=== PATIENT | female | born 1945 | race Caucasian/White ===

== ENCOUNTER 2016-12-06 09:45 | Emergency (ER) | payer OTHER ==
[2016-12-06 09:50] VITALS: BP 139/56; PULSE 59; RESP 16; TEMP 98.1; O2SAT 95
[2016-12-06] MEDS ORDERED: AZITHROMYCIN 250 MG TAB PO ONE (10:10)
--- NOTE | 2016-12-06 10:12 | EDPHY ---
H & P Stated Complaint: COUGH X1 WEEK Time Seen by Provider: 12/06/16 10:05 HPI/ROS: CHIEF COMPLAINT: Cough, bronchitis HISTORY OF PRESENT ILLNESS: The patient is a 71-year-old healthy female who comes to the emergency department requesting azithromycin for a cough and bronchitis. She states that she has had the symptoms for about 5 days. She has not had a fever. She complains of sinus congestion and a cough productive of yellow sputum. She does not have any history of cardiac or pulmonary disease. She denies sore throat. She spoke to her brother who is a retired physician and suggested she take a Z-Devon. REVIEW OF SYSTEMS: Constitutional: denies: chills, fever, recent illness, recent injury EENTM: See HPI Respiratory: See HPI Cardiac: denies: chest pain, irregular heart rate, lightheadedness, palpitations Gastrointestinal/Abdominal: denies: abdominal pain, diarrhea, nausea, vomiting, blood streaked stools Genitourinary: denies: dysuria, frequency, hematuria, pain Musculoskeletal: denies: joint pain, muscle pain Skin: denies: lesions, rash, jaundice, bruising Neurological: denies: headache, numbness, paresthesia, tingling, dizziness, weakness Hematologic/Lymphatic: denies: blood clots, easy bleeding, easy bruising Immunologic/allergic: denies: HIV/AIDS, transplant EXAM: GENERAL: Well-appearing, well-nourished and in no acute distress. HEAD: Atraumatic, normocephalic. EYES: Pupils equal round and reactive to light, extraocular movements intact, sclera anicteric, conjunctiva are normal. ENT: TMs normal, sinus congestion , oropharynx clear without exudates. Moist mucous membranes. NECK: Normal range of motion, supple without lymphadenopathy or JVD. LUNGS: Breath sounds clear to auscultation bilaterally and equal. No wheezes rales or rhonchi. HEART: Regular rate and rhythm without murmurs, rubs or gallops. ABDOMEN: Soft, nontender, normoactive bowel sounds. No guarding, no rebound. No masses appreciated. BACK: No CVA tenderness, no spinal tenderness, step-offs or deformities EXTREMITIES: Normal range of motion, no pitting or edema. No clubbing or cyanosis. NEUROLOGICAL: Cranial nerves II through XII grossly intact. Normal speech, normal gait. 5/5 strength, normal movement in all extremities, normal sensation PSYCH: Normal mood, normal affect. SKIN: Warm, dry, normal turgor, no visible rashes or lesions. Source: Patient Exam Limitations: No limitations - Personal History Current Tetanus/Diphtheria Vaccine: Unsure Current Tetanus Diphtheria and Acellular Pertussis (TDAP): Unsure - Medical/Surgical History Hx Asthma: No Hx Chronic Respiratory Disease: No Hx Diabetes: No Hx Cardiac Disease: No Hx Renal Disease: No Hx Cirrhosis: No Hx Alcoholism: No Hx HIV/AIDS: No Hx Splenectomy or Spleen Trauma: No Other PMH: PMH- HYPOTHYROID. PSH- TONSILECTOMY - Family History Significant Family History: Hypertension - Social History Smoking Status: Former smoker Alcohol Use: Sober Drug Use: None Constitutional: Initial Vital Signs Temperature (C) 36.7 C 12/06/16 09:47 Heart Rate 59 L 12/06/16 09:47 Respiratory Rate 16 12/06/16 09:47 Blood Pressure 139/56 H 12/06/16 09:47 O2 Sat (%) 95 12/06/16 09:47 O2 Delivery Mode Room Air Allergies/Adverse Reactions: No Known Allergies Allergy (Unverified 12/06/16 09:48) Home Medications: Medication Instructions Recorded AZITHROMYCIN [Z-PACK] 250 mg PO DAILY #4 tab 12/06/16 [place] Thyroid 60 MG (*) 12/06/16 Zolpidem Tartrate [Ambien 10 mg] 10 mg PO HS PRN #5 tablet 12/06/16 Medical Decision Making - Diagnostics Imaging: X-ray: chest x-ray was obtained. I viewed the images myself on the PACS system. My interpretation of the images is: Consistent with bronchitis. The radiologist interpretation is pending. ED Course/Re-evaluation: 10:30 a.m. the patient's x-rays consistent with bronchitis. She is requesting azithromycin. I will start her on a dose. She is also requesting a sleep aid but not codeine. She is requesting Ambien only for 1-2 days. I agreed to this. We discussed indications for returning as well as follow-up. Differential Diagnosis: Partial list of the Differential diagnosis considered include but were not limited to; bronchitis, pneumonia, upper respiratory tract infection, insomnia , and although unlikely based on the history and physical exam, I also considered strep throat, meningitis, sepsis. I discussed these differential diagnoses and the plan with the patient as well as the usual and expected course. The patient understands that the diagnosis is provisional and that in medicine we are not always correct and that further workup is often warranted. Usual and customary warnings were given. All of the patient's questions were answered. The patient was instructed to return to the emergency department should the symptoms at all worsen or return, otherwise to followup with the physician as we discussed. - Data Points Medications Given: Discontinued Medications Azithromycin (Zithromax) 500 mg PO EDNOW ONE PRN Reason: Protocol Stop: 12/06/16 10:11 Last Admin: 12/06/16 10:36 Dose: 500 mg Departure - Departure Disposition: Home, Routine, Self-Care Clinical Impression: Acute bronchitis Qualifiers: Bronchitis organism: unspecified organism Qualified Code(s): J20.9 - Acute bronchitis, unspecified Insomnia Qualifiers: Insomnia type: unspecified Qualified Code(s): G47.00 - Insomnia, unspecified Condition: Fair Instructions: Acute Bronchitis (ED), Insomnia (ED) Referrals: Christine Ballesteros MD [Primary Care Provider] - As per Instructions Prescriptions: AZITHROMYCIN [Z-PACK] 250 mg PO DAILY #4 tab Zolpidem Tartrate [Ambien 10 mg] 10 mg PO HS PRN #5 tablet PRN Reason: insomnia
== END 2016-12-06 10:52 | disposition home or self-care (01) ==
DX: J20.9 Acute bronchitis, unspecified (principal); G47.00 Insomnia, unspecified; Z87.891 Personal history of nicotine dependence